=== PATIENT | male | born 1970 | race African-American/Black ===

== ENCOUNTER 2025-06-07 00:54 | Inpatient (IN) | payer MEDICARE, MEDICAID ==
[~2025-06-07] VITALS: Ht 188 cm; Wt 82.6 kg
[2025-06-07] MEDS: ONDANSETRON HCL 4MG/2ML INJ IV ONE (03:04)
[2025-06-07] MEDS: MORPHINE SULFATE 4 MG/ML INJ (FOR IV/IM USE) IV ONE (03:04)
[2025-06-07 03:21] LABS: CREATININE 1.5 mg/dL (0.6-1.3); UREA NITROGEN BLOOD 15.0 mg/dL (9-23)
[2025-06-07 03:34] LABS: BASOPHILS % 0.2 % (0.0-2.0); EOSINOPHILS % 0.1 % (0.0-5.0); HEMATOCRIT. 35.5 % (42.0-52.0); HEMOGLOBIN. 10.3 g/dL (14.0-18.0); LYMPHOCYTES % 10.2 % (20.0-50.0); MEAN PLATELET VOLUME 8.5 fl (7.4-10.4); MONOCYTES % 11.4 % (2.0-8.0); NEUTROPHILS % 78.1 % (40.0-76.0); PLATELET 388 x1000/uL (130-400); RED BLOOD CELL COUNT 4.51 mill/uL (4.7-6.1); RED CELL DISTRIBUTION WIDTH 20.0 % (11.6-14.6)
[2025-06-07] MEDS: HYDRALAZINE 20MG/ML VIAL IV ONE (04:26)
[2025-06-07 10:42] VITALS: BP 167/100; PULSE 101; RESP 20; TEMP 36.5292
[2025-06-07 12:00] VITALS: BP 174/116; PULSE 86; RESP 18; TEMP 36.4; O2SAT 100
[2025-06-07] MEDS ORDERED: ACETAMINOPHEN 325MG TABLET PO PRN ×2 (12:30)
[2025-06-07] MEDS ORDERED: DOCUSATE SODIUM 100MG CAPSULE PO PRN (12:30)
[2025-06-07] MEDS ORDERED: ONDANSETRON HCL 4MG/2ML INJ IV PRN (12:30)
[2025-06-07] MEDS ORDERED: IPRATROPIUM/ALBUTEROL 0.5-3(2.5)MG/3ML NEB HHN PRN (12:30)
[2025-06-07] MEDS ORDERED: DEXTROSE 50% WATER 50ML SYRINGE IV PRN (12:30)
[2025-06-07] MEDS: ENOXAPARIN 40MG/0.4ML SYR SUBCUT SCH (13:00)
[2025-06-07] MEDS: BLOOD SUGAR DIAGNOSTIC STRIP TEST SCH (13:18)
[2025-06-07] MEDS: INSULIN LISPRO 100 UNITS/ML SUBCUT SCH (13:27)
[2025-06-07] MEDS: AMLODIPINE 5MG TABLET PO SCH (13:33)
[2025-06-07] MEDS: CLONIDINE 0.1MG TABLET PO PRN (13:37)
[2025-06-07 16:00] VITALS: BP 161/107; PULSE 161; RESP 18; TEMP 36.3; O2SAT 98
[2025-06-07] MEDS ORDERED: SPIR25TA PO (16:03)
[2025-06-07] MEDS ORDERED: FURO20TA4 PO (16:03)
[2025-06-07] MEDS ORDERED: INSU100I28 SQ (16:03)
[2025-06-07] MEDS ORDERED: INSU100V43 SQ (16:03)
[2025-06-07] MEDS ORDERED: CARV6.2548 PO (16:03)
[2025-06-07] MEDS ORDERED: METF-1149 PO (16:03)
[2025-06-07 20:00] VITALS: BP 118/65; PULSE 78; RESP 19; TEMP 36.6; O2SAT 98
[2025-06-08] VITALS: BP 126/79; PULSE 74; RESP 19; TEMP 36.7; O2SAT 97
[2025-06-08 04:00] VITALS: BP 125/79; PULSE 78; RESP 20; TEMP 36.7; O2SAT 99
[2025-06-08 08:00] VITALS: BP 160/85; PULSE 81; RESP 20; TEMP 35.8; O2SAT 96
[2025-06-08 10:52] LABS: BASOPHILS % 0.3 % (0.0-2.0); EOSINOPHILS % 2.2 % (0.0-5.0); HEMATOCRIT. 33.5 % (42.0-52.0); HEMOGLOBIN. 10.2 g/dL (14.0-18.0); LYMPHOCYTES % 11.8 % (20.0-50.0); MEAN PLATELET VOLUME 8.3 fl (7.4-10.4); MONOCYTES % 7.9 % (2.0-8.0); NEUTROPHILS % 77.8 % (40.0-76.0); PLATELET 373 x1000/uL (130-400); RED BLOOD CELL COUNT 4.37 mill/uL (4.7-6.1); RED CELL DISTRIBUTION WIDTH 19.8 % (11.6-14.6)
[2025-06-08 11:01] LABS: CREATININE 1.1 mg/dL (0.6-1.3); UREA NITROGEN BLOOD 16 mg/dL (9-23)
[2025-06-08 11:03] LABS: ASPARTATE AMINOTRANSFERASE 14 IU/L (<34); BILIRUBIN TOTAL 0.7 mg/dL (0.1-1.0)
[2025-06-08 11:04] LABS: PROTEIN TOTAL 5.8 g/dL (6.0-8.3)
[2025-06-08 11:52] VITALS: BP 150/90; PULSE 82; RESP 18; TEMP 35.9; O2SAT 96
[2025-06-08] MEDS ORDERED: METHYLPREDNISOLONE DOSE PACK XX SCH (12:45)
[2025-06-08] MEDS: IRON SUCROSE COMPLEX 100 MG/5 ML ML IV SCH (14:00)
[2025-06-08 16:00] VITALS: BP 157/106; PULSE 87; RESP 18; TEMP 35.9; O2SAT 94
[2025-06-08] MEDS: CARVEDILOL 6.25 MG TABLET PO SCH (16:44)
[2025-06-08 20:00] VITALS: BP 165/104; PULSE 82; RESP 19; TEMP 36.7; O2SAT 99
[2025-06-08] MEDS ORDERED: CARVEDILOL 6.25 MG TABLET PO SCH (21:00)
[2025-06-09] VITALS: BP 130/84; PULSE 81; RESP 18; TEMP 36.1; O2SAT 98
[2025-06-09 08:00] VITALS: BP 143/90; PULSE 79; RESP 20; TEMP 36.5; O2SAT 99
[2025-06-09] MEDS: SPIRONOLACTONE 25MG TABLET PO SCH (09:19)
[2025-06-09 12:00] VITALS: BP 130/80; PULSE 80; RESP 18; TEMP 36.8; O2SAT 100
[2025-06-09] MEDS: FUROSEMIDE 40MG/4ML VIAL IVP SCH (15:24)
[2025-06-09 16:00] VITALS: BP 135/80; PULSE 90; RESP 20; TEMP 36.9; O2SAT 100
[2025-06-09] MEDS ORDERED: FUROSEMIDE 40MG TABLET PO SCH (16:30)
[2025-06-09] MEDS: FUROSEMIDE 40MG TABLET PO SCH (17:53)
[2025-06-09] MEDS: FERROUS SULFATE 325MG TABLET PO SCH (17:53)
[2025-06-10] VITALS: BP 150/64; PULSE 98; RESP 18; TEMP 37; O2SAT 99
[2025-06-10 04:00] VITALS: BP 150/82; PULSE 84; RESP 18; TEMP 37; O2SAT 99
[2025-06-10 08:00] VITALS: BP 176/69; PULSE 81; TEMP 36.9; O2SAT 98
[2025-06-10] MEDS: LOSARTAN 25 MG TABLET PO SCH (08:59)
[2025-06-10] MEDS: ENOXAPARIN 100MG/ML SYR SUBCUT SCH (09:00)
[2025-06-10 12:00] VITALS: BP 152/106; PULSE 87; RESP 18; TEMP 36.2; O2SAT 100
[2025-06-10 13:25] LABS: INR 1.1
[2025-06-10 13:30] LABS: CREATININE 1.1 mg/dL (0.6-1.3)
[2025-06-10 13:31] LABS: UREA NITROGEN BLOOD 16 mg/dL (9-23)
[2025-06-10 13:33] LABS: BASOPHILS % 0.4 % (0.0-2.0); EOSINOPHILS % 1.7 % (0.0-5.0); HEMATOCRIT. 34.2 % (42.0-52.0); HEMOGLOBIN. 10.5 g/dL (14.0-18.0); LYMPHOCYTES % 28.5 % (20.0-50.0); MEAN PLATELET VOLUME 8.9 fl (7.4-10.4); MONOCYTES % 12.9 % (2.0-8.0); NEUTROPHILS % 56.5 % (40.0-76.0); PLATELET 369 x1000/uL (130-400); RED BLOOD CELL COUNT 4.46 mill/uL (4.7-6.1); RED CELL DISTRIBUTION WIDTH 19.2 % (11.6-14.6)
[2025-06-10 16:00] VITALS: BP 130/91; PULSE 83; RESP 17; TEMP 36.3; O2SAT 98
[2025-06-10 20:18] VITALS: BP 136/93; PULSE 81; RESP 20; TEMP 36.3; O2SAT 99
[2025-06-10] MEDS: INSULIN GLARGINE 100 UNITS/ML SUBCUT SCH (22:06)
[2025-06-11 08:00] VITALS: BP 101/52; PULSE 84; RESP 18; TEMP 36.2; O2SAT 99
[2025-06-11 12:00] VITALS: BP 142/60; PULSE 80; RESP 16; TEMP 36.8; O2SAT 99
[2025-06-11 16:00] VITALS: BP 136/81; PULSE 81; RESP 18; TEMP 36.6; O2SAT 99
[2025-06-11] MEDS: APIXABAN 5 MG TABLET PO SCH (21:47)
[2025-06-12] VITALS: BP 134/80; PULSE 80; RESP 20; TEMP 36.9; O2SAT 99
[2025-06-12 04:00] VITALS: BP 130/76; PULSE 83; RESP 19; TEMP 36.6; O2SAT 100
[2025-06-12 08:00] VITALS: BP 150/87; PULSE 70; RESP 19; TEMP 36.5; TEMP 37; O2SAT 100
[2025-06-12] MEDS ORDERED: METF-1150 MT (09:19)
[2025-06-12] MEDS ORDERED: AMLO5TAB88 MT (09:19)
[2025-06-12] MEDS ORDERED: COR6 MT (09:19)
[2025-06-12] MEDS ORDERED: ASPI-1497 MT (09:19)
[2025-06-12] MEDS ORDERED: FERR-71 MT (09:19)
[2025-06-12] MEDS ORDERED: INSU100I28 SQ (09:19)
[2025-06-12] MEDS ORDERED: FURO-151 MT (09:19)
[2025-06-12] MEDS ORDERED: LOSA-412 MT (09:19)
[2025-06-12] MEDS ORDERED: DOCU-138 MT (09:19)
[2025-06-12] MEDS ORDERED: SPIR25TA6 MT (09:19)
[2025-06-12] MEDS ORDERED: APIX5TAB MT (09:19)
[2025-06-12] MEDS ORDERED: ATOR20TA MT (09:19)
[2025-06-12] MEDS: FUROSEMIDE 40MG TABLET PO SCH (11:02)
[2025-06-12 12:00] VITALS: BP 148/86; PULSE 72; RESP 20; TEMP 37.1; O2SAT 100
== END 2025-06-12 13:14 | disposition home health service (06) | DRG 291 ==
LOC: ER 00:54 → 7WST 03:59 → EDBEDREQ 04:07 → EDBEDREQTM 04:07 → ENRESERV 07:44 → 7WST 06-12 08:11
PROVIDERS: ADMIT Internal Medicine; ATTEND Internal Medicine
DX: I11.0 Hypertensive heart disease with heart failure (principal); I50.23 Acute on chronic systolic (congestive) heart failure; N17.9 Acute kidney failure, unspecified; I45.2 Bifascicular block; E88.89 Other specified metabolic disorders; R10.84 Generalized abdominal pain; E11.65 Type 2 diabetes mellitus with hyperglycemia; D50.9 Iron deficiency anemia, unspecified; I51.3 Intracardiac thrombosis, not elsewhere classified; Z79.01 Long term (current) use of anticoagulants; Z91.148 Patient's other noncompliance with medication regimen for other reason; I25.2 Old myocardial infarction; Z79.899 Other long term (current) drug therapy; Z79.4 Long term (current) use of insulin; Z79.84 Long term (current) use of oral hypoglycemic drugs
CPT/HCPCS: 36415; 74176; 76604; 80048; 80053; 82728; 82962; 83540; 83550; 83880; 84443; 85025; 87426; 93005; 93306; 93970; 96374; 96375; 99285; A4606; J0360; J1650; J1815; J1938; J2270; J2405